=== PATIENT | female | born 1985 | race Caucasian/White ===

== ENCOUNTER 2019-06-04 19:44 | Emergency (ER) | payer MEDICAID, OTHER ==
[2019-06-04] MEDS: LIDOCAINE 2%/EPI MPF (SDV) 20 ML VIAL INJ (21:22)
[2019-06-04] MEDS: ACETAMINOPHEN 500 MG TAB PO (21:33)
[2019-06-04] MEDS: DIPHTH/TET/ACEL PERTUSS (ADULT) 0.5 ML VIAL IM* (21:36)
== END 2019-06-04 22:53 | disposition home or self-care (01) ==
LOC: FTE 19:44
DX: S51.811A Laceration without foreign body of right forearm, initial encounter (principal); F17.210 Nicotine dependence, cigarettes, uncomplicated; W23.0XXA Caught, crushed, jammed, or pinched between moving objects, initial encounter; Y92.810 Car as the place of occurrence of the external cause; Z23 Encounter for immunization
CPT/HCPCS: 12001; 90471; 90715; 99283-25

== ENCOUNTER 2019-06-06 22:00 | Emergency (ER) | payer MEDICAID | END 2019-06-06 23:45 | disposition home or self-care (01) | LOC: FTE 22:00 | DX: Z48.01 Encounter for change or removal of surgical wound dressing (principal); F17.210 Nicotine dependence, cigarettes, uncomplicated | CPT/HCPCS: 99281; Z7502 ==

== ENCOUNTER → 2019-06-15 | Emergency (ER) | payer MEDICAID | END | disposition home or self-care (01) | LOC: FTE 04:11 | DX: Z48.02 Encounter for removal of sutures (principal); F17.210 Nicotine dependence, cigarettes, uncomplicated | CPT/HCPCS: 99281; Z7502 ==